=== PATIENT | female | born 1970 | race Caucasian/White ===

== ENCOUNTER 2016-08-21 16:51 | Emergency (ER) | payer OTHER ==
[~2016-08-21] VITALS: Ht 154.9 cm; Wt 90.9 kg
[~2016-08-21 16:51] MED LIST: ALEVE LIQCAPS; ALEVE LIQCAPS PO; AMOXICILLIN 50500 MG PO; AMOXICILLIN 8751 TAB PO; B-12 500 MCG PO; CEPHALEXIN250 M1 PO; FLEXERIL 1010 MG/TAB PO; FLEXERIL10 MG PO; HCTZ12.5TAB PO; IRON1 CHI; LIDODERM 5% PATC1 EA TP; LORTAB 5/500 501 TAB PO; MULTI VITAMINS1 TAB PO; MULTIPLE VITAMI1 CAP PO; NO HOME MEDICATIONS; NORCO 325 MG-51 TAB PO; NORCOELIX PO; PROMETHAZINE12.5 M5 PO; TUSS PO; ULTRAM 50MG TAB50 MG PO; VITAMIN B1225 MCG; VITAMIN C500 MG; ZITHROMAX Z PA250 MG PO
[2016-08-21 16:54] VITALS: BP 111/64
[2016-08-21 17:44] LABS: INFLUENZA B NEGATIVE
[2016-08-21 18:04] VITALS: PULSE 75; TEMP 98.2
== END 2016-08-21 18:05 | disposition home or self-care (01) ==
LOC: COL.ER 16:51
PROVIDERS: Nurse Practitioner
DX: J02.9 Acute pharyngitis, unspecified (principal); B34.9 Viral infection, unspecified

== ENCOUNTER 2016-11-05 01:28 | Emergency (ER) | payer OTHER ==
[~2016-11-05] VITALS: Ht 154.9 cm; Wt 90.9 kg
[2016-11-05 01:36] VITALS: TEMP 98.7
[2016-11-05 02:11] LABS: BASO % 0.3 % (0.0-2.0); EOS % 0.5 % (0-4.0); GRAN # 3.8 (1.4-6.5); GRAN % 62.4 % (42.2-75.2); LYMPH # 1.3 (1.2-3.4); LYMPH % 21.8 % (20.0-51.0); MEAN CELL VOLUME 81 fl (80.0-100.0); MEAN CORPUSCULAR HGB CONC 32 g/dl (33.0-37.0); MEAN PLATELET VOLUME 11.8 fl (7.4-10.4); MONO # 0.9 (0.1-0.6); MONO % 14.8 % (1.7-9.3); PLATELET COUNT 214 K/mm3 (130-400); RED BLOOD COUNT 4.53 M/mm3 (4.10-5.30); REDCELL DISTRIBUTION WIDTH-CV 15.8 % (11.5-14.5); WHITE BLOOD COUNT 6.1 K/mm3 (4.8-10.8)
[2016-11-05 02:12] LABS: HEMATOCRIT 36.7 % (37.0-47.0); HEMOGLOBIN 11.6 g/dl (12.5-16.0); MEAN CORPUSCULAR HEMOGLOBIN 26 pg (27.0-31.0)
[2016-11-05 02:14] LABS: PH 5 (5-8); SQUAMOUS EPITHELIAL 0-2 /hpf; URINE APPEARANCE Clear; URINE BACTERIA Many /hpf; URINE BILIRUBIN Negative (NEGATIVE); URINE BLOOD 2+ (NEGATIVE); URINE COLOR Yellow; URINE GLUCOSE Negative (NEGATIVE); URINE KETONE Negative (NEGATIVE); URINE UROBILINOGEN Negative (NEGATIVE)
[2016-11-05 02:22] LABS: ALBUMIN 3.9 gm/dL (3.5-5.0); BILIRUBIN,TOTAL 0.5 mg/dL (0.0-1.0); CALCIUM 8.9 mg/dL (8.4-10.2); CREATININE, serum 0.76 mg/dL (0.52-1.25); POTASSIUM 3.6 mmol/L (3.4-5.0); TOTAL PROTEIN 7.8 gm/dL (6.4-8.2)
[2016-11-05 02:25] LABS: INFLUENZA B NEGATIVE
[2016-11-05] MEDS ORDERED: MACROBID 1100 MG/CAP PO (02:37)
[2016-11-05] MEDS ORDERED: ZOFRAN 4MG T4 MG/TAB PO (02:39)
[2016-11-05 03:15] VITALS: BP 141/86; PULSE 93
[2016-11-05] MEDS ORDERED: TUSS PO (12:02)
== END 2016-11-05 03:17 | disposition home or self-care (01) ==
LOC: COL.ER 01:28
PROVIDERS: Nurse Practitioner
DX: N39.0 Urinary tract infection, site not specified (principal); B96.1 Klebsiella pneumoniae [K. pneumoniae] as the cause of diseases classified elsewhere; I10 Essential (primary) hypertension; D64.9 Anemia, unspecified
CPT/HCPCS: J2405; J7030

== ENCOUNTER 2016-11-05 10:33 | Emergency (ER) | payer OTHER ==
[~2016-11-05] VITALS: Ht 154.9 cm; Wt 90.9 kg
[~2016-11-05 10:33] MED LIST changes: +MACROBID 1100 MG/CAP PO; +ZOFRAN 4MG T4 MG/TAB PO
[2016-11-05] MEDS ORDERED: TUSS PO (12:02)
[2016-11-05 12:16] VITALS: BP 137/49; PULSE 92; TEMP 98.5
== END 2016-11-05 12:20 | disposition home or self-care (01) ==
LOC: COL.ER 10:33
DX: J11.1 Influenza due to unidentified influenza virus with other respiratory manifestations (principal)

== ENCOUNTER 2016-11-17 20:10 | Emergency (ER) | payer OTHER ==
[~2016-11-17] VITALS: Ht 154.9 cm; Wt 90.9 kg
[2016-11-17 20:12] VITALS: BP 120/67; TEMP 98.5
[2016-11-17 21:41] LABS: INFLUENZA B NEGATIVE
[2016-11-17] MEDS ORDERED: TESSALON P100 MG/CAP PO (22:11)
[2016-11-17] MEDS ORDERED: PREDNISONE20 MG PO (22:11)
[2016-11-17 22:33] VITALS: PULSE 70
== END 2016-11-17 22:35 | disposition home or self-care (01) ==
LOC: COL.ER 20:10
PROVIDERS: Nurse Practitioner
DX: J06.9 Acute upper respiratory infection, unspecified (principal); I10 Essential (primary) hypertension

== ENCOUNTER 2016-12-20 13:06 | Emergency (ER) | payer OTHER ==
[~2016-12-20] VITALS: Ht 154.9 cm; Wt 90.9 kg
[~2016-12-20 13:06] MED LIST changes: +PREDNISONE20 MG PO; +TESSALON P100 MG/CAP PO
[2016-12-20 13:09] VITALS: TEMP 97.4
[2016-12-20 15:37] LABS: BASO % 0.3 % (0.0-2.0); EOS # 0.2 (0.0-0.7); EOS % 2.5 % (0-4.0); GRAN # 5.4 (1.4-6.5); GRAN % 59.9 % (42.2-75.2); HEMATOCRIT 37.7 % (37.0-47.0); HEMOGLOBIN 12.1 g/dl (12.5-16.0); LYMPH # 2.5 (1.2-3.4); LYMPH % 27.6 % (20.0-51.0); MEAN CELL VOLUME 80 fl (80.0-100.0); MEAN CORPUSCULAR HEMOGLOBIN 26 pg (27.0-31.0); MEAN CORPUSCULAR HGB CONC 32 g/dl (33.0-37.0); MONO # 0.9 (0.1-0.6); MONO % 9.5 % (1.7-9.3); PLATELET COUNT 400 K/mm3 (130-400); RED BLOOD COUNT 4.73 M/mm3 (4.10-5.30); REDCELL DISTRIBUTION WIDTH-CV 16.8 % (11.5-14.5); WHITE BLOOD COUNT 8.9 K/mm3 (4.8-10.8)
[2016-12-20 15:51] LABS: ADJUSTED CALCIUM 8.8 mg/dL (8.4-10.2); ALANINE AMINOTRANSFERASE 26 U/L (9-52); ALBUMIN 4.1 gm/dL (3.5-5.0); ALKALINE PHOSPHATASE 95 U/L (50-136); ANION GAP 10 mmol/L (7-16); BILIRUBIN,TOTAL 0.6 mg/dL (0.0-1.0); BLOOD UREA NITROGEN 12 mg/dL (7-17); CALCIUM 8.9 mg/dL (8.4-10.2); CARBON DIOXIDE 29 mmol/L (22-30); CHLORIDE 101 mmol/L (98-107); CREATININE, serum 0.68 mg/dL (0.52-1.25); GLUCOSE 86 mg/dL (74-106); LIPASE 49 U/L (23-300); SODIUM 140 mmol/L (137-145); TOTAL PROTEIN 7.7 gm/dL (6.4-8.2)
[2016-12-20 15:59] LABS: PH 7 (5-8); URINE APPEARANCE Hazy; URINE BACTERIA None Seen /hpf; URINE BILIRUBIN Negative (NEGATIVE); URINE BLOOD 1+ (NEGATIVE); URINE COLOR Yellow; URINE GLUCOSE Negative (NEGATIVE); URINE KETONE Negative (NEGATIVE); URINE RBC 0-2 /hpf; URINE UROBILINOGEN Negative (NEGATIVE); URINE WBC 0-2 /hpf
[2016-12-20 16:07] LABS: TROPONIN-I < 0.012 ng/mL (0.000-0.034)
[2016-12-20 16:08] LABS: AMPHETAMINE URINE NEGATIVE; BARBITURATES URINE NEGATIVE; BENZODIAZEPINES URINE NEGATIVE; BUPRENORPHINE URINE NEGATIVE; METHADONE URINE NEGATIVE; OPIATES URINE NEGATIVE; OXYCODONE URINE NEGATIVE; PHENCYCLIDINE URINE NEGATIVE; PROPOXYPHENE URINE NEGATIVE; THC CANNABINOIDS URINE NEGATIVE
[2016-12-20] MEDS ORDERED: ZOFRAN ODT4 MG PO (16:16)
[2016-12-20 16:31] VITALS: BP 143/86; PULSE 62
== END 2016-12-20 16:38 | disposition home or self-care (01) ==
LOC: COL.ER 13:06
PROVIDERS: Family Medicine
DX: E86.0 Dehydration (principal); R11.2 Nausea with vomiting, unspecified; I10 Essential (primary) hypertension; Z98.84 Bariatric surgery status
CPT/HCPCS: J2405; J7030

== ENCOUNTER 2017-02-13 03:29 | Emergency (ER) | payer OTHER ==
[~2017-02-13] VITALS: Ht 154.9 cm; Wt 95.5 kg
[~2017-02-13 03:29] MED LIST changes: +ZOFRAN ODT4 MG PO
[2017-02-13 03:33] VITALS: TEMP 97.7
[2017-02-13] MEDS ORDERED: ULTRAM 50MG TAB50 MG PO (03:53)
[2017-02-13 05:30] VITALS: BP 150/70; PULSE 88
== END 2017-02-13 05:30 | disposition home or self-care (01) ==
LOC: COL.ER 03:29
DX: J02.8 Acute pharyngitis due to other specified organisms (principal); B97.89 Other viral agents as the cause of diseases classified elsewhere
CPT/HCPCS: J1885

== ENCOUNTER 2017-02-28 22:22 | Emergency (ER) | payer OTHER ==
[~2017-02-28] VITALS: Ht 154.9 cm; Wt 95.5 kg
[2017-02-28 22:25] VITALS: TEMP 97.2
[2017-02-28] MEDS ORDERED: FLEXERIL 1010 MG/TAB PO (23:43)
[2017-03-01] VITALS: BP 135/85
[2017-03-01 00:11] VITALS: PULSE 76
== END 2017-03-01 00:11 | disposition home or self-care (01) ==
LOC: COL.ER 22:22
DX: M54.2 Cervicalgia (principal); M62.838 Other muscle spasm; R51 Headache
CPT/HCPCS: J1885; J3360

== ENCOUNTER 2017-04-25 19:30 | Emergency (ER) | payer OTHER ==
[~2017-04-25] VITALS: Ht 154.9 cm; Wt 95.5 kg
[2017-04-25 19:51] VITALS: BP 159/85; TEMP 97.2
[2017-04-25 21:31] VITALS: PULSE 83
== END 2017-04-25 21:31 | disposition home or self-care (01) ==
LOC: COL.ER 19:30
DX: S62.640A Nondisplaced fracture of proximal phalanx of right index finger, initial encounter for closed fracture (principal); I10 Essential (primary) hypertension; F43.10 Post-traumatic stress disorder, unspecified; F32.9 Major depressive disorder, single episode, unspecified; W23.1XXA Caught, crushed, jammed, or pinched between stationary objects, initial encounter; Y92.009 Unspecified place in unspecified non-institutional (private) residence as the place of occurrence of the external cause

== ENCOUNTER 2017-08-14 22:10 | Emergency (ER) | payer OTHER ==
[~2017-08-14] VITALS: Ht 154.9 cm; Wt 84.1 kg
[2017-08-14 22:12] VITALS: BP 137/105; TEMP 97.9
[2017-08-14 23:05] LABS: INFLUENZA A NEGATIVE; INFLUENZA B NEGATIVE
[2017-08-14] MEDS ORDERED: ZOFRAN 4MG T4 MG/TAB PO (23:37)
[2017-08-15 00:01] VITALS: PULSE 71
== END 2017-08-15 00:03 | disposition home or self-care (01) ==
LOC: COL.ER 22:10
PROVIDERS: Emergency Medicine
DX: J11.1 Influenza due to unidentified influenza virus with other respiratory manifestations (principal); R11.2 Nausea with vomiting, unspecified; Z90.49 Acquired absence of other specified parts of digestive tract; Z98.51 Tubal ligation status; Z98.84 Bariatric surgery status
CPT/HCPCS: J0780; J1200; J1885; J2405; J7030

== ENCOUNTER 2017-09-23 05:40 | Emergency (ER) | payer OTHER ==
[~2017-09-23] VITALS: Ht 154.9 cm; Wt 81.8 kg
[2017-09-23 05:45] VITALS: TEMP 99.6
[2017-09-23 07:31] VITALS: BP 132/74; PULSE 89
== END 2017-09-23 07:31 | disposition home or self-care (01) ==
LOC: COL.ER 05:40
DX: J11.1 Influenza due to unidentified influenza virus with other respiratory manifestations (principal); F32.9 Major depressive disorder, single episode, unspecified; F43.10 Post-traumatic stress disorder, unspecified; Z95.1 Presence of aortocoronary bypass graft; Z90.49 Acquired absence of other specified parts of digestive tract; Z98.890 Other specified postprocedural states

== ENCOUNTER 2017-09-26 03:34 | Emergency (ER) | payer OTHER ==
[~2017-09-26] VITALS: Ht 154.9 cm; Wt 81.8 kg
[2017-09-26 03:36] VITALS: BP 132/88; PULSE 101; TEMP 98.1
[2017-09-27] MEDS ORDERED: DOXYCYCLINE 10100 MG PO (11:23)
== END 2017-09-26 04:49 | disposition left against medical advice (07) ==
LOC: COL.ER 03:34
DX: R50.9 Fever, unspecified (principal)

== ENCOUNTER 2017-09-27 10:27 | Emergency (ER) | payer OTHER ==
[~2017-09-27] VITALS: Ht 154.9 cm; Wt 81.8 kg
[2017-09-27 10:36] VITALS: BP 160/90; PULSE 89; TEMP 98
[2017-09-27] MEDS ORDERED: DOXYCYCLINE 10100 MG PO (11:23)
== END 2017-09-27 11:30 | disposition home or self-care (01) ==
LOC: COL.ER 10:27
DX: J40 Bronchitis, not specified as acute or chronic (principal); I10 Essential (primary) hypertension; Z90.49 Acquired absence of other specified parts of digestive tract; Z98.51 Tubal ligation status

== ENCOUNTER 2017-10-07 09:20 | Emergency (ER) | payer OTHER ==
[~2017-10-07] VITALS: Ht 182.9 cm; Wt 96.7 kg
[~2017-10-07 09:20] MED LIST changes: +DOXYCYCLINE 10100 MG PO
[2017-10-07 09:30] VITALS: TEMP 97.8
[2017-10-07] MEDS ORDERED: FLEXERIL 1010 MG/TAB PO (12:15)
[2017-10-07 12:42] VITALS: BP 139/96; PULSE 64
== END 2017-10-07 12:40 | disposition home or self-care (01) ==
LOC: COL.ER 09:20
DX: S16.1XXA Strain of muscle, fascia and tendon at neck level, initial encounter (principal); S29.012A Strain of muscle and tendon of back wall of thorax, initial encounter; F32.9 Major depressive disorder, single episode, unspecified; F43.10 Post-traumatic stress disorder, unspecified; Z88.6 Allergy status to analgesic agent; Z90.49 Acquired absence of other specified parts of digestive tract; Z98.84 Bariatric surgery status; Z89.022 Acquired absence of left finger(s); V89.2XXA Person injured in unspecified motor-vehicle accident, traffic, initial encounter

== ENCOUNTER 2017-11-06 11:58 | Emergency (ER) | payer SELFPAY ==
[~2017-11-06] VITALS: Ht 154.9 cm; Wt 86.4 kg
[2017-11-06 12:11] VITALS: BP 129/80; TEMP 97.6
[2017-11-06] MEDS ORDERED: LIORESAL 1010 MG/TAB PO (13:10)
[2017-11-06 13:28] VITALS: PULSE 74
== END 2017-11-06 13:29 | disposition home or self-care (01) ==
LOC: COL.ER 11:58
DX: M62.830 Muscle spasm of back (principal); M54.5 Low back pain; Z90.49 Acquired absence of other specified parts of digestive tract; Z98.51 Tubal ligation status; Z98.84 Bariatric surgery status; X50.0XXA Overexertion from strenuous movement or load, initial encounter; Y92.129 Unspecified place in nursing home as the place of occurrence of the external cause
CPT/HCPCS: J1885

== ENCOUNTER 2017-12-10 12:14 | Emergency (ER) | payer SELFPAY ==
[~2017-12-10] VITALS: Ht 154.9 cm; Wt 95.5 kg
[~2017-12-10 12:14] MED LIST changes: +LIORESAL 1010 MG/TAB PO
[2017-12-10 12:28] VITALS: BP 149/91; PULSE 96; TEMP 98.5
[2017-12-10] MEDS ORDERED: AMOXICILLIN 8751 TAB PO (14:59)
== END 2017-12-10 15:42 | disposition home or self-care (01) ==
LOC: COL.ER 12:14
DX: S51.811A Laceration without foreign body of right forearm, initial encounter (principal); Z23 Encounter for immunization; Z98.84 Bariatric surgery status; Z90.49 Acquired absence of other specified parts of digestive tract; Z98.51 Tubal ligation status; W54.0XXA Bitten by dog, initial encounter; Y92.009 Unspecified place in unspecified non-institutional (private) residence as the place of occurrence of the external cause

== ENCOUNTER 2018-02-11 22:00 | Emergency (ER) | payer OTHER ==
[~2018-02-11] VITALS: Ht 154.9 cm; Wt 102.7 kg
[2018-02-11 22:06] VITALS: BP 140/91; TEMP 97.8
[2018-02-11 22:31] LABS: BASO # 0.1 (0.0-0.2); BASO % 0.4 % (0.0-2.0); EOS # 0.6 (0.0-0.7); EOS % 4.4 % (0-4.0); GRAN % 62.7 % (42.2-75.2); HEMATOCRIT 37.1 % (37.0-47.0); LYMPH # 3.1 (1.2-3.4); LYMPH % 24.5 % (20.0-51.0); MEAN CELL VOLUME 82 fl (80.0-100.0); MEAN CORPUSCULAR HEMOGLOBIN 27 pg (27.0-31.0); MEAN CORPUSCULAR HGB CONC 32 g/dl (33.0-37.0); MEAN PLATELET VOLUME 10.8 fl (7.4-10.4); MONO % 7.7 % (1.7-9.3); PLATELET COUNT 306 K/mm3 (130-400); RED BLOOD COUNT 4.51 M/mm3 (4.10-5.30); REDCELL DISTRIBUTION WIDTH-CV 15.1 % (11.5-14.5)
[2018-02-11 22:42] LABS: ALBUMIN 3.9 gm/dL (3.5-5.0); BILIRUBIN,TOTAL 0.2 mg/dL (0.0-1.0); C-REACTIVE PROTEIN 1.2 mg/dL (0.0-0.9); CREATININE, serum 0.65 mg/dL (0.52-1.25); TOTAL PROTEIN 8.1 gm/dL (6.4-8.2)
[2018-02-11 22:52] LABS: COLLECTION METHOD CLEAN CATCH
[2018-02-11 23:03] LABS: MUCOUS Present /lpf; PH 5 (5-8); URINE APPEARANCE Clear; URINE BACTERIA None Seen /hpf; URINE BILIRUBIN Negative (NEGATIVE); URINE BLOOD Negative (NEGATIVE); URINE COLOR Yellow; URINE GLUCOSE Negative (NEGATIVE); URINE KETONE Negative (NEGATIVE); URINE LEUKOCYTE ESTERASE Negative (NEGATIVE); URINE NITRATE Negative (NEGATIVE); URINE PROTEIN(semi-quant) Negative (NEGATIVE); URINE RBC 0-2 /hpf; URINE UROBILINOGEN Negative (NEGATIVE)
[2018-02-11 23:32] VITALS: PULSE 87
== END 2018-02-11 23:40 | disposition home or self-care (01) ==
LOC: COL.ER 22:00
PROVIDERS: Nurse Practitioner
DX: R20.0 Anesthesia of skin (principal); Z90.49 Acquired absence of other specified parts of digestive tract; Z98.84 Bariatric surgery status

== ENCOUNTER 2018-04-17 11:05 | Emergency (ER) | payer OTHER ==
[~2018-04-17] VITALS: Ht 154.9 cm; Wt 95.5 kg
[2018-04-17 11:13] VITALS: TEMP 98.2
[2018-04-17 11:42] LABS: BASO % 0.3 % (0.0-2.0); EOS # 0.4 (0.0-0.7); EOS % 3.9 % (0-4.0); GRAN # 7.2 (1.4-6.5); GRAN % 68.8 % (42.2-75.2); HEMATOCRIT 37.1 % (37.0-47.0); HEMOGLOBIN 11.9 g/dl (12.5-16.0); LYMPH % 19.5 % (20.0-51.0); MEAN CELL VOLUME 84 fl (80.0-100.0); MEAN CORPUSCULAR HEMOGLOBIN 27 pg (27.0-31.0); MEAN CORPUSCULAR HGB CONC 32 g/dl (33.0-37.0); MEAN PLATELET VOLUME 10.9 fl (7.4-10.4); MONO # 0.7 (0.1-0.6); MONO % 7.1 % (1.7-9.3); PLATELET COUNT 346 K/mm3 (130-400); RED BLOOD COUNT 4.41 M/mm3 (4.10-5.30); REDCELL DISTRIBUTION WIDTH-CV 14.8 % (11.5-14.5)
[2018-04-17 11:54] LABS: ALANINE AMINOTRANSFERASE 25 U/L (9-52); ALBUMIN 3.8 gm/dL (3.5-5.0); ALKALINE PHOSPHATASE 98 U/L (50-136); ANION GAP 11 mmol/L (7-16); AST,SGOT 23 U/L (15-37); BILIRUBIN,TOTAL 0.3 mg/dL (0.0-1.0); BLOOD UREA NITROGEN 12 mg/dL (7-17); C-REACTIVE PROTEIN 1.2 mg/dL (0.0-0.9); CALCIUM 8.6 mg/dL (8.4-10.2); CARBON DIOXIDE 25 mmol/L (22-30); CHLORIDE 101 mmol/L (98-107); CREATININE, serum 0.62 mg/dL (0.52-1.25); GLUCOSE 107 mg/dL (74-106); LIPASE 33 U/L (23-300); POTASSIUM 3.4 mmol/L (3.4-5.0); SODIUM 137 mmol/L (137-145); TOTAL PROTEIN 7.4 gm/dL (6.4-8.2)
[2018-04-17 12:11] LABS: TROPONIN-I < 0.012 ng/mL (0.000-0.034)
[2018-04-17] MEDS ORDERED: ZITHROMAX 250M250 MG PO (12:49)
[2018-04-17 13:17] VITALS: BP 113/77; PULSE 86
== END 2018-04-17 13:00 | disposition home or self-care (01) ==
LOC: COL.ER 11:05
PROVIDERS: Emergency Medicine
DX: R07.89 Other chest pain (principal); J40 Bronchitis, not specified as acute or chronic; R09.1 Pleurisy; I25.10 Atherosclerotic heart disease of native coronary artery without angina pectoris

== ENCOUNTER 2018-05-07 18:39 | Emergency (ER) | payer OTHER ==
[~2018-05-07] VITALS: Ht 154.9 cm; Wt 100.0 kg
[~2018-05-07 18:39] MED LIST changes: +ZITHROMAX 250M250 MG PO
[2018-05-07 18:56] VITALS: TEMP 98.2
[2018-05-07 20:35] LABS: COLLECTION METHOD CLEAN CATCH
[2018-05-07 20:46] LABS: MUCOUS Present /lpf; PH 6 (5-8); URINE APPEARANCE Clear; URINE BACTERIA None Seen /hpf; URINE BILIRUBIN Negative (NEGATIVE); URINE BLOOD Negative (NEGATIVE); URINE COLOR Yellow; URINE GLUCOSE Negative (NEGATIVE); URINE KETONE Negative (NEGATIVE); URINE LEUKOCYTE ESTERASE Negative (NEGATIVE); URINE NITRATE Negative (NEGATIVE); URINE PROTEIN(semi-quant) Negative (NEGATIVE); URINE RBC 0-2 /hpf
[2018-05-07 21:08] LABS: BASO % 0.4 % (0.0-2.0); EOS # 0.7 (0.0-0.7); EOS % 7.1 % (0-4.0); GRAN # 5.7 (1.4-6.5); GRAN % 56.6 % (42.2-75.2); HEMOGLOBIN 11.9 g/dl (12.5-16.0); LYMPH # 2.9 (1.2-3.4); LYMPH % 28.6 % (20.0-51.0); MEAN CELL VOLUME 83 fl (80.0-100.0); MEAN CORPUSCULAR HEMOGLOBIN 27 pg (27.0-31.0); MEAN CORPUSCULAR HGB CONC 32 g/dl (33.0-37.0); MEAN PLATELET VOLUME 10.9 fl (7.4-10.4); MONO # 0.7 (0.1-0.6); MONO % 6.9 % (1.7-9.3); PLATELET COUNT 351 K/mm3 (130-400); RED BLOOD COUNT 4.45 M/mm3 (4.10-5.30); REDCELL DISTRIBUTION WIDTH-CV 14.5 % (11.5-14.5)
[2018-05-07 21:09] LABS: HEMATOCRIT 36.7 % (37.0-47.0)
[2018-05-07 21:19] LABS: ALBUMIN 3.9 gm/dL (3.5-5.0); BILIRUBIN,TOTAL 0.3 mg/dL (0.0-1.0); C-REACTIVE PROTEIN 1.3 mg/dL (0.0-0.9); CALCIUM 8.7 mg/dL (8.4-10.2); CREATININE, serum 0.68 mg/dL (0.52-1.25); POTASSIUM 3.7 mmol/L (3.4-5.0); TOTAL PROTEIN 7.7 gm/dL (6.4-8.2)
[2018-05-07] MEDS ORDERED: ZOFRAN ODT4 MG PO (21:50)
[2018-05-07] MEDS ORDERED: TUSS PO (21:50)
[2018-05-07 22:01] VITALS: BP 114/59; PULSE 73
== END 2018-05-07 22:01 | disposition home or self-care (01) ==
LOC: COL.ER 18:39
PROVIDERS: Physician Assistant
DX: R05 Cough (principal); R11.2 Nausea with vomiting, unspecified; R10.31 Right lower quadrant pain; R10.32 Left lower quadrant pain; Z98.51 Tubal ligation status; Z98.84 Bariatric surgery status

== ENCOUNTER 2018-10-10 10:24 | Emergency (ER) | payer OTHER | END 2018-10-10 12:18 | disposition home or self-care (01) | LOC: COL.ER 10:24 | DX: G43.909 Migraine, unspecified, not intractable, without status migrainosus (principal); R07.89 Other chest pain; F43.10 Post-traumatic stress disorder, unspecified; Z90.49 Acquired absence of other specified parts of digestive tract; Z98.51 Tubal ligation status ==

== ENCOUNTER 2018-12-12 23:33 | Emergency (ER) | payer OTHER ==
[~2018-12-12] VITALS: Ht 154.9 cm; Wt 95.5 kg
[2018-12-12 23:41] VITALS: TEMP 98.4
[2018-12-12] MEDS ORDERED: BIOTIN2500 MCG PO (23:45)
[2018-12-13 00:40] LABS: BASO % 0.3 % (0.0-2.0); EOS # 0.3 (0.0-0.7); EOS % 1.7 % (0-4.0); GRAN # 11.4 (1.4-6.5); GRAN % 72.9 % (42.2-75.2); HEMOGLOBIN 11.3 g/dl (12.5-16.0); LYMPH # 2.6 (1.2-3.4); LYMPH % 16.4 % (20.0-51.0); MEAN CELL VOLUME 80 fl (80.0-100.0); MEAN CORPUSCULAR HEMOGLOBIN 26 pg (27.0-31.0); MEAN CORPUSCULAR HGB CONC 32 g/dl (33.0-37.0); MEAN PLATELET VOLUME 11.9 fl (7.4-10.4); MONO # 1.3 (0.1-0.6); MONO % 8.3 % (1.7-9.3); PLATELET COUNT 289 K/mm3 (130-400); RED BLOOD COUNT 4.42 M/mm3 (4.10-5.30); REDCELL DISTRIBUTION WIDTH-CV 16.7 % (11.5-14.5)
[2018-12-13 00:41] LABS: HEMATOCRIT 35.4 % (37.0-47.0)
[2018-12-13 00:44] LABS: ALANINE AMINOTRANSFERASE 12 U/L (9-52); ALBUMIN 3.8 gm/dL (3.5-5.0); ALKALINE PHOSPHATASE 98 U/L (50-136); ANION GAP 8 mmol/L (7-16); AST,SGOT 18 U/L (15-37); BILIRUBIN,TOTAL 0.2 mg/dL (0.0-1.0); BLOOD UREA NITROGEN 15 mg/dL (7-17); CALCIUM 8.8 mg/dL (8.4-10.2); CARBON DIOXIDE 25 mmol/L (22-30); CHLORIDE 104 mmol/L (98-107); CREATININE, serum 0.62 (0.52-1.25); GLUCOSE 95 mg/dL (74-106); POTASSIUM 4.3 mmol/L (3.4-5.0); SODIUM 136 mmol/L (137-145); TOTAL PROTEIN 7.7 gm/dL (6.4-8.2)
[2018-12-13 01:58] LABS: TROPONIN-I < 0.012 ng/mL (0.000-0.035)
[2018-12-13] MEDS ORDERED: PHENERGAN W/CO120 M1 PO (02:11)
[2018-12-13] MEDS ORDERED: DOXYCYCLINE 10100 MG PO (02:11)
[2018-12-13 02:12] VITALS: BP 128/84; PULSE 85
== END 2018-12-13 02:27 | disposition home or self-care (01) ==
LOC: COL.ER 23:33
PROVIDERS: Emergency Medicine
DX: J20.9 Acute bronchitis, unspecified (principal); R07.89 Other chest pain; Z98.84 Bariatric surgery status; Z98.51 Tubal ligation status; Z90.49 Acquired absence of other specified parts of digestive tract
CPT/HCPCS: J1885; J7030

== ENCOUNTER 2019-03-04 02:28 | Emergency (ER) | payer OTHER ==
[~2019-03-04] VITALS: Ht 154.9 cm; Wt 97.3 kg
[~2019-03-04 02:28] MED LIST changes: +BIOTIN2500 MCG PO; +PHENERGAN W/CO120 M1 PO
[2019-03-04 02:30] VITALS: BP 197/103; PULSE 63; TEMP 98
[2019-03-04] MEDS ORDERED: AMOXICILLIN875 MG PO (03:12)
[2019-03-04] MEDS ORDERED: NORCO 325 MG-51 TAB PO (03:12)
== END 2019-03-04 03:33 | disposition home or self-care (01) ==
LOC: COL.ER 02:28
DX: K02.9 Dental caries, unspecified (principal); F32.9 Major depressive disorder, single episode, unspecified; F43.10 Post-traumatic stress disorder, unspecified; Z88.6 Allergy status to analgesic agent

== ENCOUNTER 2019-03-04 03:53 | Emergency (ER) | payer OTHER ==
[~2019-03-04 03:53] MED LIST changes: +AMOXICILLIN875 MG PO
[2019-03-04 03:56] VITALS: BP 169/103; PULSE 83; TEMP 98.7
== END 2019-03-04 05:17 | disposition home or self-care (01) ==
LOC: COL.ER 03:53
DX: K02.9 Dental caries, unspecified (principal); E66.9 Obesity, unspecified; F32.9 Major depressive disorder, single episode, unspecified; F43.10 Post-traumatic stress disorder, unspecified

== ENCOUNTER 2020-04-07 23:10 | Emergency (ER) | payer OTHER ==
[~2020-04-07] VITALS: Ht 154.9 cm; Wt 100.0 kg
[2020-04-07 23:17] VITALS: BP 135/85; TEMP 97.7
[2020-04-07 23:41] VITALS: PULSE 61
== END 2020-04-07 23:45 | disposition home or self-care, planned readmission (81) ==
LOC: COL.ER 23:10
DX: K08.89 Other specified disorders of teeth and supporting structures (principal); F32.9 Major depressive disorder, single episode, unspecified; F43.10 Post-traumatic stress disorder, unspecified; Z98.84 Bariatric surgery status

== ENCOUNTER 2020-04-11 05:35 | Emergency (ER) | payer OTHER ==
[~2020-04-11] VITALS: Ht 162.6 cm; Wt 100.0 kg
[2020-04-11 05:46] VITALS: TEMP 97.5
[2020-04-11 06:26] LABS: BASO % 0.3 % (0.0-2.0); EOS # 0.6 (0.0-0.7); EOS % 4.9 % (0-4.0); HEMOGLOBIN 11.8 g/dl (12.5-16.0); LYMPH # 2.8 (1.2-3.4); MEAN CELL VOLUME 83 fl (80.0-100.0); MEAN CORPUSCULAR HEMOGLOBIN 26 pg (27.0-31.0); MEAN CORPUSCULAR HGB CONC 32 g/dl (33.0-37.0); MONO # 1.1 (0.1-0.6); MONO % 9.6 % (1.7-9.3); PLATELET COUNT 281 K/mm3 (130-400); RED BLOOD COUNT 4.47 M/mm3 (4.10-5.30); REDCELL DISTRIBUTION WIDTH-CV 16.6 % (11.5-14.5)
[2020-04-11 06:43] LABS: ALANINE AMINOTRANSFERASE 13 U/L (4-34); ALBUMIN 3.8 gm/dL (3.5-5.0); ALKALINE PHOSPHATASE 98 U/L (50-136); ANION GAP 7 mmol/L (7-16); AST,SGOT 23 U/L (15-37); BILIRUBIN,TOTAL 0.3 mg/dL (0.0-1.0); BLOOD UREA NITROGEN 8 mg/dL (7-17); C-REACTIVE PROTEIN 1.7 mg/dL (0.0-0.9); CALCIUM 8.7 mg/dL (8.4-10.2); CARBON DIOXIDE 29 mmol/L (22-30); CHLORIDE 102 mmol/L (98-107); CREATINE KINASE 54 U/L (30-135); CREATININE, serum 0.68 (0.52-1.25); GLUCOSE 97 mg/dL (74-106); LIPASE 33 U/L (23-300); POTASSIUM 4.1 mmol/L (3.4-5.0); SODIUM 138 mmol/L (137-145); TOTAL PROTEIN 7.5 gm/dL (6.4-8.2)
[2020-04-11 07:00] LABS: TROPONIN-I < 0.012 ng/mL (0.000-0.035)
[2020-04-11 10:38] VITALS: BP 146/84; PULSE 82
== END 2020-04-11 10:43 | disposition home or self-care (01) ==
LOC: COL.ER 05:35
PROVIDERS: Emergency Medicine
DX: R07.1 Chest pain on breathing (principal); Z32.02 Encounter for pregnancy test, result negative; Z90.49 Acquired absence of other specified parts of digestive tract; Z98.84 Bariatric surgery status; Z82.49 Family history of ischemic heart disease and other diseases of the circulatory system; Z88.6 Allergy status to analgesic agent

== ENCOUNTER 2020-08-04 20:27 | Emergency (ER) | payer OTHER ==
[~2020-08-04] VITALS: Ht 160 cm; Wt 95.5 kg
[2020-08-04 20:34] VITALS: TEMP 97.4
[2020-08-04 22:37] VITALS: BP 113/86; PULSE 85
== END 2020-08-04 22:37 | disposition home or self-care (01) ==
LOC: COL.ER 20:27
DX: R50.9 Fever, unspecified (principal); Z20.828 Contact with and (suspected) exposure to other viral communicable diseases; Z88.6 Allergy status to analgesic agent

== ENCOUNTER 2020-08-20 22:01 | Emergency (ER) | payer OTHER ==
[~2020-08-20] VITALS: Ht 160 cm; Wt 100.0 kg
[2020-08-20 22:17] VITALS: TEMP 97.4
[2020-08-20] MEDS ORDERED: ZOFRAN ODT4 MG PO (23:30)
[2020-08-20 23:50] VITALS: BP 145/93; PULSE 67
== END 2020-08-20 23:50 | disposition home or self-care (01) ==
LOC: COL.ER 22:01
DX: M79.10 Myalgia, unspecified site (principal); R05 Cough; R11.2 Nausea with vomiting, unspecified; R09.81 Nasal congestion; Z20.822 Contact with and (suspected) exposure to COVID-19; Z90.49 Acquired absence of other specified parts of digestive tract; Z98.84 Bariatric surgery status; Z79.1 Long term (current) use of non-steroidal anti-inflammatories (NSAID)

== ENCOUNTER 2020-09-19 08:35 | Emergency (ER) | payer OTHER ==
[~2020-09-19] VITALS: Ht 154.9 cm; Wt 100.0 kg
[2020-09-19 08:57] VITALS: BP 132/92; TEMP 98
[2020-09-19 09:37] LABS: COLLECTION METHOD CLEAN CATCH
[2020-09-19 09:48] LABS: MUCOUS Present /lpf; PH 5 (5-8); URINE APPEARANCE Cloudy; URINE BACTERIA Rare /hpf; URINE BILIRUBIN Negative (NEGATIVE); URINE BLOOD Negative (NEGATIVE); URINE COLOR Yellow; URINE GLUCOSE Negative (NEGATIVE); URINE KETONE Negative (NEGATIVE); URINE LEUKOCYTE ESTERASE 3+ (NEGATIVE); URINE NITRATE Negative (NEGATIVE); URINE PROTEIN(semi-quant) 1+ (NEGATIVE)
[2020-09-19] MEDS ORDERED: FLEXERIL 1010 MG/TAB PO (10:34)
[2020-09-19 10:43] VITALS: PULSE 91
== END 2020-09-19 10:43 | disposition home or self-care (01) ==
LOC: COL.ER 08:35
PROVIDERS: Emergency Medicine
DX: M54.5 Low back pain (principal); R11.2 Nausea with vomiting, unspecified; R05 Cough; R53.83 Other fatigue; Z88.6 Allergy status to analgesic agent; Z86.39 Personal history of other endocrine, nutritional and metabolic disease
CPT/HCPCS: J2270

== ENCOUNTER 2020-12-22 11:06 | Emergency (ER) | payer OTHER ==
[~2020-12-22] VITALS: Ht 154.9 cm; Wt 95.5 kg
[2020-12-22 11:10] VITALS: TEMP 97.5
[2020-12-22 11:46] LABS: BASO % 0.3 % (0.0-2.0); EOS # 0.6 (0.0-0.7); EOS % 5.5 % (0-4.0); GRAN # 5.6 (1.4-6.5); GRAN % 54.6 % (42.2-75.2); HEMATOCRIT 40.4 % (37.0-47.0); LYMPH # 3.1 (1.2-3.4); MEAN CELL VOLUME 82 fl (80.0-100.0); MEAN CORPUSCULAR HEMOGLOBIN 27 pg (27.0-31.0); MEAN CORPUSCULAR HGB CONC 32 g/dl (33.0-37.0); MEAN PLATELET VOLUME 11.8 fl (7.4-10.4); MONO % 9.4 % (1.7-9.3); PLATELET COUNT 323 K/mm3 (130-400); REDCELL DISTRIBUTION WIDTH-CV 15.5 % (11.5-14.5)
[2020-12-22 11:54] LABS: ALANINE AMINOTRANSFERASE 15 U/L (4-34); ALBUMIN 4.1 gm/dL (3.5-5.0); ALKALINE PHOSPHATASE 111 U/L (50-136); ANION GAP 7 mmol/L (7-16); AST,SGOT 27 U/L (15-37); BILIRUBIN,TOTAL 0.3 mg/dL (0.0-1.0); BLOOD UREA NITROGEN 12 mg/dL (7-17); C-REACTIVE PROTEIN 1.4 mg/dL (0.0-0.9); CALCIUM 9.1 mg/dL (8.4-10.2); CARBON DIOXIDE 27 mmol/L (22-30); CHLORIDE 103 mmol/L (98-107); CREATININE, serum 0.58 (0.52-1.25); GLUCOSE 94 mg/dL (74-106); POTASSIUM 3.8 mmol/L (3.4-5.0); SODIUM 137 mmol/L (137-145); TOTAL PROTEIN 8.2 gm/dL (6.4-8.2)
[2020-12-22 11:57] LABS: INR 1.1 (0.8-3.0); PROTHROMBIN TIME 12.3 SECONDS (9.7-12.8)
[2020-12-22 12:01] LABS: D-DIMER < 200.00 ng/mLDDu (200-230)
[2020-12-22 12:14] LABS: COLLECTION METHOD CLEAN CATCH
[2020-12-22 12:20] LABS: PH 7 (5-8); URINE APPEARANCE Clear; URINE BACTERIA Rare /hpf; URINE BILIRUBIN Negative (NEGATIVE); URINE BLOOD Negative (NEGATIVE); URINE COLOR Straw; URINE GLUCOSE Negative (NEGATIVE); URINE KETONE Negative (NEGATIVE); URINE LEUKOCYTE ESTERASE Negative (NEGATIVE); URINE NITRATE Negative (NEGATIVE); URINE PROTEIN(semi-quant) Negative (NEGATIVE); URINE RBC 0-2 /hpf; URINE UROBILINOGEN Negative (NEGATIVE)
[2020-12-22 12:39] LABS: TROPONIN-I < 0.012 ng/mL (0.000-0.035)
[2020-12-22 15:30] VITALS: BP 141/60; PULSE 80
== END 2020-12-22 15:30 | disposition home or self-care (01) ==
LOC: COL.ER 11:06
PROVIDERS: Emergency Medicine
DX: R07.2 Precordial pain (principal); I16.0 Hypertensive urgency; M54.5 Low back pain; R94.31 Abnormal electrocardiogram [ECG] [EKG]; Z88.6 Allergy status to analgesic agent; Z82.49 Family history of ischemic heart disease and other diseases of the circulatory system

== ENCOUNTER 2021-01-30 17:31 | Emergency (ER) | payer OTHER ==
[~2021-01-30] VITALS: Ht 154.9 cm; Wt 97.7 kg
[2021-01-30 17:45] VITALS: TEMP 97.2
[2021-01-30 19:06] VITALS: BP 116/63; PULSE 74
== END 2021-01-30 19:11 | disposition home or self-care (01) ==
LOC: COL.ER 17:31
DX: T22.252A Burn of second degree of left shoulder, initial encounter (principal); T22.251A Burn of second degree of right shoulder, initial encounter; E66.9 Obesity, unspecified; X32.XXXA Exposure to sunlight, initial encounter

== ENCOUNTER 2021-02-09 21:49 | Emergency (ER) | payer OTHER ==
[~2021-02-09] VITALS: Ht 154.9 cm; Wt 100.0 kg
[2021-02-09 21:58] VITALS: TEMP 98
[2021-02-09 22:55] LABS: BASO % 0.3 % (0.0-2.0); EOS # 0.5 (0.0-0.7); EOS % 4.2 % (0-4.0); GRAN # 7.2 (1.4-6.5); GRAN % 56.1 % (42.2-75.2); HEMATOCRIT 37.9 % (37.0-47.0); HEMOGLOBIN 11.9 g/dl (12.5-16.0); LYMPH # 3.7 (1.2-3.4); LYMPH % 29.2 % (20.0-51.0); MEAN CELL VOLUME 84 fl (80.0-100.0); MEAN CORPUSCULAR HEMOGLOBIN 26 pg (27.0-31.0); MEAN CORPUSCULAR HGB CONC 31 g/dl (33.0-37.0); MEAN PLATELET VOLUME 11.8 fl (7.4-10.4); MONO # 1.3 (0.1-0.6); PLATELET COUNT 281 K/mm3 (130-400); RED BLOOD COUNT 4.51 M/mm3 (4.10-5.30); REDCELL DISTRIBUTION WIDTH-CV 15.9 % (11.5-14.5)
[2021-02-09 23:15] LABS: ALANINE AMINOTRANSFERASE 13 U/L (4-34); ALBUMIN 3.8 gm/dL (3.5-5.0); ALKALINE PHOSPHATASE 81 U/L (50-136); ANION GAP 5 mmol/L (7-16); AST,SGOT 25 U/L (15-37); BILIRUBIN,TOTAL 0.3 mg/dL (0.0-1.0); BLOOD UREA NITROGEN 18 mg/dL (7-17); CALCIUM 9.1 mg/dL (8.4-10.2); CARBON DIOXIDE 24 mmol/L (22-30); CHLORIDE 108 mmol/L (98-107); CREATINE KINASE 73 U/L (30-135); CREATININE, serum 0.57 (0.52-1.25); GLUCOSE 76 mg/dL (74-106); LIPASE 80 U/L (23-300); POTASSIUM 4.8 mmol/L (3.4-5.0); SODIUM 137 mmol/L (137-145); TOTAL PROTEIN 7.5 gm/dL (6.4-8.2)
[2021-02-09 23:17] LABS: TROPONIN-I < 0.012 ng/mL (0.000-0.035)
[2021-02-09] MEDS ORDERED: PRINIVIL5 MG PO (23:43)
[2021-02-09] MEDS ORDERED: ULTRAM 50MG TAB50 MG PO (23:43)
[2021-02-09 23:54] VITALS: BP 132/80; PULSE 89
== END 2021-02-10 00:21 | disposition home or self-care (01) ==
LOC: COL.ER 21:49
PROVIDERS: Emergency Medicine
DX: R06.02 Shortness of breath (principal); M54.6 Pain in thoracic spine; R03.0 Elevated blood-pressure reading, without diagnosis of hypertension; I25.2 Old myocardial infarction
CPT/HCPCS: J1885; J2060; J7030

== ENCOUNTER 2021-04-14 12:52 | Emergency (ER) | payer OTHER ==
[~2021-04-14] VITALS: Ht 154.9 cm; Wt 104.5 kg
[~2021-04-14 12:52] MED LIST changes: +PRINIVIL5 MG PO
[2021-04-14 17:50] LABS: EOS # 0.1 (0.0-0.7); EOS % 1.5 % (0-4.0); GRAN # 3.2 (1.4-6.5); GRAN % 59.8 % (42.2-75.2); HEMATOCRIT 38.7 % (37.0-47.0); HEMOGLOBIN 12.6 g/dl (12.5-16.0); LYMPH # 1.6 (1.2-3.4); LYMPH % 30.4 % (20.0-51.0); MEAN CELL VOLUME 82 fl (80.0-100.0); MEAN CORPUSCULAR HEMOGLOBIN 27 pg (27.0-31.0); MEAN CORPUSCULAR HGB CONC 33 g/dl (33.0-37.0); MEAN PLATELET VOLUME 12.1 fl (7.4-10.4); MONO # 0.4 (0.1-0.6); MONO % 8.1 % (1.7-9.3); PLATELET COUNT 216 K/mm3 (130-400); REDCELL DISTRIBUTION WIDTH-CV 15.4 % (11.5-14.5)
[2021-04-14 18:08] LABS: ALANINE AMINOTRANSFERASE 13 U/L (4-34); ALKALINE PHOSPHATASE 104 U/L (50-136); ANION GAP 5 mmol/L (7-16); AST,SGOT 23 U/L (15-37); BILIRUBIN,TOTAL < 0.1 mg/dL (0.0-1.0); BLOOD UREA NITROGEN 12 mg/dL (7-17); CALCIUM 8.9 mg/dL (8.4-10.2); CARBON DIOXIDE 30 mmol/L (22-30); CHLORIDE 103 mmol/L (98-107); CREATININE, serum 0.69 (0.52-1.25); GLUCOSE 93 mg/dL (74-106); POTASSIUM 3.7 mmol/L (3.4-5.0); SODIUM 139 mmol/L (137-145); TOTAL PROTEIN 7.8 gm/dL (6.4-8.2)
[2021-04-14 23:22] VITALS: BP 145/64; PULSE 88; TEMP 98.5
== END 2021-04-14 18:35 | disposition home or self-care (01) ==
LOC: COL.ER 12:52
PROVIDERS: Nurse Practitioner Primary Care
DX: U07.1 COVID-19 (principal); Z88.6 Allergy status to analgesic agent

== ENCOUNTER 2021-05-30 01:41 | Emergency (ER) | payer OTHER ==
[2021-05-30 02:03] VITALS: TEMP 97.2
[2021-05-30] MEDS ORDERED: FLEXERIL 1010 MG/TAB PO (03:30)
[2021-05-30 03:39] VITALS: BP 178/86; PULSE 52
== END 2021-05-30 03:39 | disposition home or self-care (01) ==
LOC: COL.ER 01:41
DX: U07.1 COVID-19 (principal); S02.5XXA Fracture of tooth (traumatic), initial encounter for closed fracture; M25.512 Pain in left shoulder; Z73.0 Burn-out; V49.40XA Driver injured in collision with unspecified motor vehicles in traffic accident, initial encounter

== ENCOUNTER 2021-08-05 22:21 | Emergency (ER) | payer OTHER ==
[2021-08-05 22:29] VITALS: TEMP 97.7
[2021-08-05 23:33] LABS: BASO % 0.3 % (0.0-2.0); EOS # 0.5 K/mm3 (0.0-0.7); GRAN # 5.2 K/mm3 (1.4-6.5); GRAN % 55.9 % (42.2-75.2); HEMOGLOBIN 11.1 g/dl (12.5-16.0); LYMPH # 2.8 K/mm3 (1.2-3.4); LYMPH % 30.4 % (20.0-51.0); MEAN CELL VOLUME 81 fl (80.0-100.0); MEAN CORPUSCULAR HEMOGLOBIN 26 pg (27-31); MEAN CORPUSCULAR HGB CONC 32 g/dl (33.0-37.0); MEAN PLATELET VOLUME 11.3 fl (7.4-10.4); MONO # 0.8 K/mm3 (0.1-0.6); MONO % 8.1 % (1.7-9.3); PLATELET COUNT 279 K/mm3 (130-400); RED BLOOD COUNT 4.28 M/mm3 (4.10-5.30); REDCELL DISTRIBUTION WIDTH-CV 14.7 % (11.5-14.5)
[2021-08-05 23:37] LABS: HEMATOCRIT 34.5 % (37.0-47.0)
[2021-08-06 00:17] LABS: ALBUMIN 3.6 gm/dL (3.5-5.0); BILIRUBIN,TOTAL 0.2 mg/dL (0.2-1.2); CALCIUM 8.9 mg/dL (8.4-10.2); CREATININE, serum 0.77 mg/dL (0.57-1.11); POTASSIUM 4.1 mmol/L (3.5-4.5); TOTAL PROTEIN 7.3 gm/dL (6.2-8.1)
[2021-08-06 00:52] LABS: COLLECTION METHOD CLEAN CATCH
[2021-08-06 00:58] LABS: MUCOUS Present (NOT PRESENT); PH 6 (5-8); SQUAMOUS EPITHELIAL 0-2 /hpf (0-10); URINE APPEARANCE Clear (CLEAR/HAZY); URINE BACTERIA None Seen /hpf (NONE SEEN); URINE BILIRUBIN Negative (NEGATIVE); URINE BLOOD Negative (NEGATIVE); URINE COLOR Yellow (YELLOW); URINE GLUCOSE Negative (NEGATIVE); URINE KETONE Negative (NEGATIVE); URINE LEUKOCYTE ESTERASE Negative (NEGATIVE); URINE NITRATE Negative (NEGATIVE); URINE PROTEIN(semi-quant) Negative (NEGATIVE); URINE RBC 0-2 /hpf (0-2); URINE UROBILINOGEN Negative (NEGATIVE)
[2021-08-06 01:12] VITALS: BP 143/91; PULSE 79
== END 2021-08-06 01:12 | disposition home or self-care (01) ==
LOC: COL.ER 22:21
PROVIDERS: Physician Assistant
DX: R11.2 Nausea with vomiting, unspecified (principal); R19.7 Diarrhea, unspecified; Z98.84 Bariatric surgery status; Z90.49 Acquired absence of other specified parts of digestive tract
CPT/HCPCS: J2405; J7030

== ENCOUNTER 2021-09-04 10:53 | Emergency (ER) | payer OTHER ==
[~2021-09-04] VITALS: Ht 154.9 cm; Wt 100.0 kg
[2021-09-04 11:10] VITALS: BP 162/106; TEMP 97.8
[2021-09-04 12:32] LABS: BASO % 0.5 % (0.0-2.0); EOS # 0.4 K/mm3 (0.0-0.7); GRAN # 3.8 K/mm3 (1.4-6.5); GRAN % 52.3 % (42.2-75.2); HEMATOCRIT 37.2 % (37.0-47.0); HEMOGLOBIN 11.8 g/dl (12.5-16.0); LYMPH # 2.3 K/mm3 (1.2-3.4); LYMPH % 30.9 % (20.0-51.0); MEAN CELL VOLUME 81 fl (80.0-100.0); MEAN CORPUSCULAR HEMOGLOBIN 26 pg (27-31); MEAN CORPUSCULAR HGB CONC 32 g/dl (33.0-37.0); MEAN PLATELET VOLUME 11.1 fl (7.4-10.4); MONO # 0.7 K/mm3 (0.1-0.6); PLATELET COUNT 358 K/mm3 (130-400); RED BLOOD COUNT 4.59 M/mm3 (4.10-5.30); REDCELL DISTRIBUTION WIDTH-CV 14.8 % (11.5-14.5)
[2021-09-04 12:55] LABS: ALANINE AMINOTRANSFERASE 13 U/L (0-55); ALBUMIN 3.4 gm/dL (3.5-5.0); ALKALINE PHOSPHATASE 96 U/L (40-150); ANION GAP 7 mmol/L (7-16); AST,SGOT 18 U/L (5-34); BILIRUBIN,TOTAL 0.3 mg/dL (0.2-1.2); BLOOD UREA NITROGEN 12 mg/dL (7-19); C-REACTIVE PROTEIN 0.88 mg/dL (0.00-0.50); CALCIUM 8.8 mg/dL (8.4-10.2); CARBON DIOXIDE 25 mmol/L (22-29); CHLORIDE 106 mmol/L (98-107); CREATININE, serum 0.72 mg/dL (0.57-1.11); GLUCOSE 88 mg/dL (70-99); LIPASE 21 U/L (8-78); SODIUM 138 mmol/L (136-145); TOTAL PROTEIN 7.3 gm/dL (6.2-8.1)
[2021-09-04 13:01] LABS: TROPONIN-I < 0.010 ng/mL (0.00-0.033)
[2021-09-04 14:57] VITALS: PULSE 85
== END 2021-09-04 14:57 | disposition home or self-care (01) ==
LOC: COL.ER 10:53
PROVIDERS: Nurse Practitioner
DX: R07.89 Other chest pain (principal); R19.7 Diarrhea, unspecified; Z88.6 Allergy status to analgesic agent; Z20.822 Contact with and (suspected) exposure to COVID-19
CPT/HCPCS: J1885

== ENCOUNTER 2021-09-11 07:16 | Emergency (ER) | payer OTHER ==
[~2021-09-11] VITALS: Ht 154.9 cm; Wt 100.0 kg
[2021-09-11 07:22] VITALS: TEMP 97.6
[2021-09-11 08:06] LABS: ALBUMIN 3.6 gm/dL (3.5-5.0); BILIRUBIN,TOTAL 0.4 mg/dL (0.2-1.2); CALCIUM 8.6 mg/dL (8.4-10.2); CREATININE, serum 0.76 mg/dL (0.57-1.11); POTASSIUM 3.8 mmol/L (3.5-4.5); TOTAL PROTEIN 7.4 gm/dL (6.2-8.1)
[2021-09-11 08:07] LABS: BASO % 0.3 % (0.0-2.0); EOS # 0.4 K/mm3 (0.0-0.7); EOS % 3.9 % (0.0-4.0); GRAN # 6.3 K/mm3 (1.4-6.5); GRAN % 63.5 % (42.2-75.2); HEMOGLOBIN 11.6 g/dl (12.5-16.0); LYMPH # 2.3 K/mm3 (1.2-3.4); LYMPH % 23.5 % (20.0-51.0); MEAN CELL VOLUME 80 fl (80.0-100.0); MEAN CORPUSCULAR HEMOGLOBIN 26 pg (27-31); MEAN CORPUSCULAR HGB CONC 32 g/dl (33.0-37.0); MEAN PLATELET VOLUME 11.3 fl (7.4-10.4); MONO # 0.8 K/mm3 (0.1-0.6); MONO % 8.5 % (1.7-9.3); PLATELET COUNT 330 K/mm3 (130-400); RED BLOOD COUNT 4.53 M/mm3 (4.10-5.30)
[2021-09-11 08:11] LABS: TROPONIN-I 0.029 ng/mL (0.00-0.033)
[2021-09-11 08:41] LABS: HEMATOCRIT 36.3 % (37.0-47.0)
[2021-09-11] MEDS ORDERED: NORVASC 5MG5 MG/TAB PO (09:02)
[2021-09-11] MEDS ORDERED: NORCO 325 MG-51 TAB PO (09:02)
[2021-09-11 09:05] VITALS: BP 150/104; PULSE 77
== END 2021-09-11 09:20 | disposition home or self-care (01) ==
LOC: COL.ER 07:16
PROVIDERS: Personal Emergency Response Attendant
DX: I10 Essential (primary) hypertension (principal); D64.9 Anemia, unspecified; Z79.899 Other long term (current) drug therapy

== ENCOUNTER 2022-03-06 16:07 | Emergency (ER) | payer OTHER ==
[~2022-03-06] VITALS: Ht 154.9 cm; Wt 100.0 kg
[~2022-03-06 16:07] MED LIST changes: +NORVASC 5MG5 MG/TAB PO
[2022-03-06 16:34] VITALS: BP 132/79; PULSE 74; TEMP 97.4
== END 2022-03-06 17:44 | disposition home or self-care (01) ==
LOC: COL.ER 16:07
DX: M79.671 Pain in right foot (principal); M79.89 Other specified soft tissue disorders; E66.9 Obesity, unspecified; Z68.41 Body mass index [BMI] 40.0-44.9, adult; Z28.310 Unvaccinated for COVID-19

== ENCOUNTER 2022-11-06 18:28 | Emergency (ER) | payer OTHER ==
[~2022-11-06] VITALS: Ht 154.9 cm; Wt 100.0 kg
[~2022-11-06 18:28] MED LIST changes: +ANTIVERT 25MG25 MG PO
[2022-11-06 19:25] LABS: BASO % 0.1 % (0.0-2.0); EOS # 0.1 K/mm3 (0.0-0.7); EOS % 1.3 % (0.0-4.0); GRAN # 9.5 K/mm3 (1.4-6.5); GRAN % 89.6 % (42.2-75.2); HEMATOCRIT 39.9 % (37.0-47.0); HEMOGLOBIN 13.1 g/dl (12.5-16.0); LYMPH # 0.5 K/mm3 (1.2-3.4); LYMPH % 4.9 % (20.0-51.0); MEAN CELL VOLUME 80 fl (80.0-100.0); MEAN CORPUSCULAR HEMOGLOBIN 26 pg (27-31); MEAN CORPUSCULAR HGB CONC 33 g/dl (33.0-37.0); MEAN PLATELET VOLUME 11.1 fl (7.4-10.4); MONO # 0.4 K/mm3 (0.1-0.6); MONO % 3.8 % (1.7-9.3); PLATELET COUNT 314 K/mm3 (130-400); REDCELL DISTRIBUTION WIDTH-CV 15.8 % (11.5-14.5)
[2022-11-06 19:45] LABS: ALANINE AMINOTRANSFERASE 17 U/L (0-55); ALBUMIN 3.6 gm/dL (3.5-5.0); ALKALINE PHOSPHATASE 126 U/L (40-150); ANION GAP 8 mmol/L (7-16); AST,SGOT 15 U/L (5-34); BILIRUBIN,TOTAL 0.4 mg/dL (0.2-1.2); BLOOD UREA NITROGEN 15 mg/dL (10-20); CALCIUM 8.8 mg/dL (8.4-10.2); CARBON DIOXIDE 24 mmol/L (22-29); CHLORIDE 104 mmol/L (98-107); CREATININE, serum 0.77 mg/dL (0.57-1.11); GLUCOSE 107 mg/dL (70-99); POTASSIUM 4.4 mmol/L (3.5-4.5); SODIUM 136 mmol/L (136-145); TOTAL PROTEIN 7.8 gm/dL (6.2-8.1)
[2022-11-06 19:56] LABS: TROPONIN-I < 0.010 ng/mL (0.00-0.033)
[2022-11-06] MEDS ORDERED: ZOFRAN ODT4 MG PO (20:20)
[2022-11-06 21:00] VITALS: BP 145/76; PULSE 104; TEMP 98.1
== END 2022-11-06 21:00 | disposition home or self-care (01) ==
LOC: COL.ER 18:28
PROVIDERS: Emergency Medicine
DX: R11.2 Nausea with vomiting, unspecified (principal); R07.9 Chest pain, unspecified; R00.0 Tachycardia, unspecified; Z20.822 Contact with and (suspected) exposure to COVID-19
CPT/HCPCS: J2270; J2405; J7030

== ENCOUNTER 2023-09-11 23:29 | Emergency (ER) | payer OTHER ==
[~2023-09-11] VITALS: Ht 154.9 cm; Wt 100.0 kg
[~2023-09-11 23:29] MED LIST changes: +VOLTAREN GEL 1%1 TU TP; +XARELTO STARTER20 MG PO; +XARELTO15 MG PO
[2023-09-11 23:33] VITALS: BP 127/78; TEMP 98.2
[2023-09-11] MEDS ORDERED: Ketorolac 60 MG/2 ML VIAL IM ONE (23:45)
[2023-09-12 00:18] VITALS: PULSE 64
== END 2023-09-12 00:18 | disposition home or self-care (01) ==
LOC: COL.ER 23:29
DX: S41.152A Open bite of left upper arm, initial encounter (principal); M25.562 Pain in left knee; G89.29 Other chronic pain; M25.462 Effusion, left knee; M25.461 Effusion, right knee; E66.01 Morbid (severe) obesity due to excess calories; Z88.6 Allergy status to analgesic agent; W54.0XXA Bitten by dog, initial encounter
CPT/HCPCS: J1885

== ENCOUNTER 2023-09-17 11:36 | Emergency (ER) | payer OTHER ==
[~2023-09-17] VITALS: Ht 154.9 cm; Wt 100.0 kg
[2023-09-17 11:42] VITALS: TEMP 97.4
[2023-09-17] MEDS ORDERED: TESSALON P100 MG/CAP PO (14:12)
[2023-09-17 14:45] VITALS: BP 150/88; PULSE 81
== END 2023-09-17 14:52 | disposition home or self-care (01) ==
LOC: COL.ER 11:36
DX: U07.1 COVID-19 (principal); R05.9 Cough, unspecified; R52 Pain, unspecified; F17.200 Nicotine dependence, unspecified, uncomplicated

== ENCOUNTER 2024-02-25 08:33 | Emergency (ER) | payer OTHER ==
[~2024-02-25] VITALS: Ht 154.9 cm; Wt 100.0 kg
[2024-02-25 08:37] VITALS: TEMP 97.6
[2024-02-25 10:12] LABS: COLLECTION METHOD CLEAN CATCH
[2024-02-25 10:24] LABS: PH 5.5 (5.0-8.5); URINE APPEARANCE CLOUDY (CLEAR/HAZY); URINE BLOOD TRACE (NEGATIVE); URINE COLOR YELLOW (YELLOW); URINE GLUCOSE NEGATIVE (NEGATIVE); URINE KETONE TRACE (NEGATIVE); URINE NITRATE NEGATIVE (NEGATIVE); URINE PROTEIN(semi-quant) TRACE (NEGATIVE)
[2024-02-25] MEDS ORDERED: MOTRIN 800800 MG/TAB PO (10:31)
[2024-02-25 10:57] VITALS: BP 131/81; PULSE 76
== END 2024-02-25 10:57 | disposition home or self-care (01) ==
LOC: COL.ER 08:33
PROVIDERS: Personal Emergency Response Attendant
DX: J02.9 Acute pharyngitis, unspecified (principal); M54.9 Dorsalgia, unspecified

== ENCOUNTER 2024-03-15 14:27 | Emergency (ER) | payer OTHER ==
[~2024-03-15] VITALS: Ht 154.9 cm; Wt 100.0 kg
[~2024-03-15 14:27] MED LIST changes: +MOTRIN 800800 MG/TAB PO
[2024-03-15 15:17] LABS: BASO % 0.3 % (0.0-2.0); EOS # 0.6 K/mm3 (0.0-0.7); EOS % 5.4 % (0.0-4.0); GRAN # 5.5 K/mm3 (1.4-6.5); GRAN % 53.8 % (42.2-75.2); HEMATOCRIT 37.6 % (37.0-47.0); HEMOGLOBIN 11.9 g/dl (12.5-16.0); LYMPH # 3.2 K/mm3 (1.2-3.4); LYMPH % 31.4 % (20.0-51.0); MEAN CELL VOLUME 83 fl (80.0-100.0); MEAN CORPUSCULAR HEMOGLOBIN 26 pg (27-31); MEAN CORPUSCULAR HGB CONC 32 g/dl (33.0-37.0); MONO # 0.9 K/mm3 (0.1-0.6); MONO % 8.7 % (1.7-9.3); PLATELET COUNT 345 K/mm3 (130-400); RED BLOOD COUNT 4.51 M/mm3 (4.10-5.30); REDCELL DISTRIBUTION WIDTH-CV 16.5 % (11.5-14.5)
[2024-03-15 15:35] LABS: ALANINE AMINOTRANSFERASE 12 U/L (0-55); ALBUMIN 3.5 g/dL (3.5-5.0); ALKALINE PHOSPHATASE 129 U/L (40-150); ANION GAP 10 mmol/L (7-16); AST,SGOT 14 U/L (5-34); BILIRUBIN,TOTAL 0.3 mg/dL (0.2-1.2); BLOOD UREA NITROGEN 13 mg/dL (10-20); CALCIUM 9.1 mg/dL (8.4-10.2); CHLORIDE 106 mEq/L (98-107); CREATININE, serum 0.79 mg/dL (0.57-1.11); GLUCOSE 137 mg/dL (70-99); LIPASE 19 U/L (8-78); POTASSIUM 3.8 mEq/L (3.5-4.5); SODIUM 139 mEq/L (136-145); TOTAL PROTEIN 7.4 g/dl (6.2-8.1)
[2024-03-15 15:56] LABS: TROPONIN-I < 0.010 ng/mL (0.00-0.033)
[2024-03-15 17:22] VITALS: BP 125/78; PULSE 74; TEMP 98.1
== END 2024-03-15 17:29 | disposition home or self-care (01) ==
LOC: COL.ER 14:27
PROVIDERS: Emergency Medicine
DX: R07.89 Other chest pain (principal)

== ENCOUNTER 2024-03-18 12:56 | Emergency (ER) | payer OTHER ==
[~2024-03-18] VITALS: Ht 154.9 cm; Wt 100.0 kg
[2024-03-18 15:10] LABS: COLLECTION METHOD CLEAN CATCH
[2024-03-18] MEDS ORDERED: Acetaminophen 500 MG TAB PO ONE (15:15)
[2024-03-18 15:28] LABS: URINE APPEARANCE Clear (CLEAR/HAZY); URINE COLOR Yellow (YELLOW)
[2024-03-18 15:29] LABS: PH 5.5 (5.0-8.5); URINE BLOOD Negative (NEGATIVE); URINE GLUCOSE Negative (NEGATIVE); URINE KETONE TRACE (NEGATIVE); URINE NITRATE Negative (NEGATIVE); URINE PROTEIN(semi-quant) Negative (NEGATIVE); URINE UROBILINOGEN 0.2 E.U/dL (0.2-1.0)
[2024-03-18 15:39] LABS: URINE RBC 0-2 /hpf (0-2); URINE WBC 0-2 /hpf (0-2)
[2024-03-18 15:40] LABS: MUCOUS PRESENT (NOT PRESENT); URINE BACTERIA NONE SEEN /hpf (NONE SEEN)
[2024-03-18] MEDS ORDERED: Morphine 4 MG/ML VIAL IV ONE (15:45)
[2024-03-18] MEDS ORDERED: Ondansetron 4 MG/2 ML VIAL IV ONE (15:45)
[2024-03-18] MEDS ORDERED: NS 1,000 ML IV ONE (16:15)
[2024-03-18 16:27] LABS: BASO % 0.2 % (0.0-2.0); EOS # 0.5 K/mm3 (0.0-0.7); GRAN # 4.7 K/mm3 (1.4-6.5); GRAN % 54.6 % (42.2-75.2); HEMATOCRIT 37.8 % (37.0-47.0); LYMPH # 2.7 K/mm3 (1.2-3.4); LYMPH % 30.8 % (20.0-51.0); MEAN CELL VOLUME 82 fl (80.0-100.0); MEAN CORPUSCULAR HEMOGLOBIN 26 pg (27-31); MEAN CORPUSCULAR HGB CONC 32 g/dl (33.0-37.0); MEAN PLATELET VOLUME 10.7 fl (7.4-10.4); MONO # 0.7 K/mm3 (0.1-0.6); MONO % 8.3 % (1.7-9.3); PLATELET COUNT 371 K/mm3 (130-400); RED BLOOD COUNT 4.59 M/mm3 (4.10-5.30); REDCELL DISTRIBUTION WIDTH-CV 16.1 % (11.5-14.5)
[2024-03-18] MEDS ORDERED: Iohexol 300 - 100 ML VIAL IV ONE (16:32)
[2024-03-18] MEDS ORDERED: NS 100 ML IV ONE (16:33)
[2024-03-18 16:55] LABS: ALBUMIN 3.6 g/dL (3.5-5.0); BILIRUBIN,TOTAL 0.2 mg/dL (0.2-1.2); C-REACTIVE PROTEIN 1.19 mg/dL (0.00-0.50); CALCIUM 9.3 mg/dL (8.4-10.2); CREATININE, serum 0.78 mg/dL (0.57-1.11); POTASSIUM 3.9 mEq/L (3.5-4.5); TOTAL PROTEIN 7.5 g/dl (6.2-8.1)
[2024-03-18] MEDS ORDERED: PYRIDIUM 100MG100 MG PO (17:53)
[2024-03-18] MEDS ORDERED: NAPROSYN500 MG PO (17:53)
[2024-03-18] MEDS ORDERED: LIDODERM 5% PATC1 EA TP (18:05)
[2024-03-18 18:34] VITALS: BP 118/73; PULSE 69; TEMP 97.4
== END 2024-03-18 18:34 | disposition home or self-care (01) ==
LOC: COL.ER 12:56
PROVIDERS: Emergency Medicine
DX: M54.50 Low back pain, unspecified (principal); N28.1 Cyst of kidney, acquired; R30.0 Dysuria
CPT/HCPCS: J2270; J2405; J7030; Q9967

== ENCOUNTER 2024-04-17 10:35 | Emergency (ER) | payer OTHER ==
[~2024-04-17] VITALS: Ht 154.9 cm; Wt 100.0 kg
[~2024-04-17 10:35] MED LIST changes: +NAPROSYN500 MG PO; +PYRIDIUM 100MG100 MG PO
[2024-04-17 10:44] VITALS: BP 132/85; TEMP 98
[2024-04-17 12:22] VITALS: PULSE 85
== END 2024-04-17 12:22 | disposition home or self-care (01) ==
LOC: COL.ER 10:35
DX: J02.9 Acute pharyngitis, unspecified (principal)

== ENCOUNTER 2024-06-11 23:49 | Emergency (ER) | payer OTHER ==
[~2024-06-11] VITALS: Ht 154.9 cm; Wt 100.0 kg
[2024-06-11 23:54] VITALS: TEMP 97.7
[2024-06-12 00:25] LABS: BASO % 0.2 % (0.0-2.0); EOS # 0.5 K/mm3 (0.0-0.7); EOS % 4.6 % (0.0-4.0); GRAN # 6.4 K/mm3 (1.4-6.5); GRAN % 57.7 % (42.2-75.2); HEMOGLOBIN 11.8 g/dl (12.5-16.0); LYMPH # 3.1 K/mm3 (1.2-3.4); LYMPH % 28.2 % (20.0-51.0); MEAN CELL VOLUME 84 fl (80.0-100.0); MEAN CORPUSCULAR HEMOGLOBIN 27 pg (27-31); MEAN CORPUSCULAR HGB CONC 32 g/dl (33.0-37.0); MEAN PLATELET VOLUME 10.5 fl (7.4-10.4); PLATELET COUNT 395 K/mm3 (130-400); RED BLOOD COUNT 4.38 M/mm3 (4.10-5.30); REDCELL DISTRIBUTION WIDTH-CV 15.2 % (11.5-14.5)
[2024-06-12 00:28] LABS: HEMATOCRIT 36.6 % (37.0-47.0)
[2024-06-12 00:40] LABS: ALBUMIN 3.5 g/dL (3.5-5.0); BILIRUBIN,TOTAL 0.2 mg/dL (0.2-1.2); CALCIUM 8.7 mg/dL (8.4-10.2); CREATININE, serum 0.81 mg/dL (0.57-1.11); POTASSIUM 3.9 mEq/L (3.5-4.5); TOTAL PROTEIN 7.6 g/dl (6.2-8.1)
[2024-06-12 00:46] LABS: TROPONIN-I 0.013 ng/mL (0.00-0.033)
[2024-06-12 01:42] LABS: COLLECTION METHOD CLEAN CATCH
[2024-06-12 01:47] LABS: URINE APPEARANCE CLOUDY (CLEAR/HAZY); URINE BLOOD NEGATIVE (NEGATIVE); URINE COLOR YELLOW (YELLOW); URINE GLUCOSE NEGATIVE (NEGATIVE); URINE KETONE TRACE (NEGATIVE); URINE NITRATE NEGATIVE (NEGATIVE); URINE PROTEIN(semi-quant) NEGATIVE (NEGATIVE)
[2024-06-12] MEDS ORDERED: NS 1,000 ML IV ONE (02:15)
[2024-06-12 02:23] VITALS: BP 139/73; PULSE 85
== END 2024-06-12 03:45 | disposition home or self-care (01) ==
LOC: COL.ER 23:49
PROVIDERS: Nurse Practitioner
DX: M25.561 Pain in right knee (principal); R42 Dizziness and giddiness; R07.9 Chest pain, unspecified
CPT/HCPCS: J7030